=== PATIENT | male | born 1955 | race Caucasian/White ===

== ENCOUNTER → 2021-07-03 09:17 | Outpatient (CLI) | payer MEDICARE, OTHER, SELFPAY ==
--- NOTE | ~2021-07-03 | XR_ITS ---
EXAMINATION: XR chest 2V, XR thoracic spine 3V DATE: 07/03/2021 09:43 INDICATION: Mid back pain. Spasm of the thoracic back muscles. TECHNIQUE: 1. PA and lateral views of the chest were obtained. 2. AP, lateral and lateral swimmer's views of the thoracic spine were obtained. COMPARISON: Chest radiograph dated 11/13/2016 FINDINGS: Chest: The lungs are clear with no focal airspace opacities, pulmonary edema, pleural effusion or pneumothor ax. The cardiomediastinal silhouette is normal. Thoracic spine: Alignment is normal. Mild to moderate cervical spondylosis with anterior fusion at C5-C6. Mild anteri or wedging at T4 and at T12. Severe disc height loss at T7-T8, T8-T9 and T9-T10, moderate disc height loss at T4-T5, T5-T6 and T6-T7 and mild disc height loss at T3-T4 and T10-T11. IMPRESSION: 1. No acute cardiopulmonary disease. 2. Severe thoracic spondylosis. 3. Age-indeterminate mild anterior wedging at T4 and T12. Reviewed, dictated and finalized at location A. CHEF IMPRESSION: 1. No acute cardiopulmonary disease. 2. Severe thoracic spondylosis. 3. Age-indeterminate mild anterior wedging at T4 and T12.
== END ==
DX: M62.830 Muscle spasm of back (principal); M47.814 Spondylosis without myelopathy or radiculopathy, thoracic region; Z98.1 Arthrodesis status; M48.54XA Collapsed vertebra, not elsewhere classified, thoracic region, initial encounter for fracture
CPT/HCPCS: 71046; 72072

== ENCOUNTER → 2022-04-30 15:13 | Outpatient (CLI) | payer MEDICARE, SELFPAY ==
--- NOTE | ~2022-04-30 | MR_ITS ---
EXAMINATION: MR lumbar spine wo con DATE: 04/30/2022 15:54 INDICATION: Low back pain TECHNIQUE: Magnetic resonance imaging (MRI) of the lumbar spine was performed without intravenous con trast. Sequences included sagittal T2-weighted FSE, sagittal T2-weighted FS FSE, sagittal T1-weighted FSE, and axial T2-weighted FSE. COMPARISON: None FINDINGS: 4 mm retrolisthesis L5 on S1. Vertebral body heights are normal. Normal marrow signal. Disc desiccat ion and mild disc height loss at L4-L5 and L5-S1. Short pedicles in the mid to lower lumbar spine res ulting in mild central canal stenosis at L2-L3 and L3-L4. Posterior decompression in the lower lumbar spine with laminectomies at L4 and L5 right hemilaminotomy at L5-S1. The conus medullaris terminates at L1-L2. There is normal signal in the caudal spinal cord. Paravertebral soft tissues are unremarka ble. The following disc levels are specifically discussed: T12-L1, L1-L2 and L2-L3: The disc does not extend beyond the endplate margin. There is minimal to mil d bilateral facet joint osteoarthritis. There is no neural foraminal stenosis. There is no central ca nal stenosis at T12-L1 and L1-L2 and mild central canal stenosis at L2-L3. L3-L4: The disc does not extend beyond the endplate margin. There is moderate bilateral facet joint o steoarthritis. There is mild bilateral neural foraminal stenosis. There is mild central canal stenosi s. L4-L5: Diffuse disc bulge. There is severe bilateral facet joint osteoarthritis. There is moderate bilateral neural foraminal stenosis. There is no central canal stenosis with posterior decompression. There is however narrowing of the left and right lateral recesses. L5-S1: Disc is bulging. There is moderate left and severe right facet joint osteoarthritis. There is mild to moderate bilateral neural foraminal stenosis. There is mild central canal stenosis. There is also narrowing of the left lateral recess with mass effect upon the traversing left S1 nerve root. IMPRESSION: 1. 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 2. Postoperative change of L4 and L5 laminectomies and right L5-S1 hemilaminotomy. Reviewed, dictated and finalized at location A. IMPRESSION: 1. 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 2. Postoperative change of L4 and L5 laminectomies and right L5-S1 hemilaminoto my.
== END ==
PROVIDERS: Visit Provider Nurse Practitioner Acute Care
DX: M54.50 Low back pain, unspecified (principal); M53.3 Sacrococcygeal disorders, not elsewhere classified
CPT/HCPCS: 72148